=== PATIENT | male | born 2000 | race Caucasian/White ===

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

== ENCOUNTER → 2021-10-06 10:30 | Outpatient (CLI) | payer BC, OTHER, SELFPAY ==
[2021-10-06 11:09] LABS: Adenovirus,PCR Not Detected (NotDetected); Bordetella Pertussis Not Detected (NotDetected); Chlamydophila Pneumoniae, PCR Not Detected (NotDetected); Coronavirus 19, PCR Not Detected (NotDetected); Coronavirus 229E Not Detected (NotDetected); Coronavirus NL63 Not Detected (NotDetected); Coronavirus OC43 Not Detected (NotDetected); Coronovirus HKU1,PCR Not Detected (NotDetected); Human Metapneumovirus Not Detected (NotDetected); Influenza A, PCR Not Detected (NotDetected); Influenza AH1, 2009 Not Detected (NotDetected); Influenza AH1, PCR Not Detected (NotDetected); Influenza AH3,PCR Not Detected (NotDetected); Influenza B, PCR Not Detected (NotDetected); Mycoplasma Pneumoniae, PCR Not Detected (NotDetected); Parainfluenza 1, PCR Not Detected (NotDetected); Parainfluenza 2, PCR Not Detected (NotDetected); Parainfluenza 3, PCR Not Detected (NotDetected); Parainfluenza 4, PCR Not Detected (NotDetected); Respiratory Syncytial Virus Not Detected (NotDetected); Rhinovirus/Enterovirus Not Detected (NotDetected)
== END ==
PROVIDERS: PCP Family Medicine; Visit Provider Nurse Practitioner Family
DX: Z20.822 Contact with and (suspected) exposure to COVID-19 (principal); R05.9 Cough, unspecified
CPT/HCPCS: 87581; 87632; 87798; C9803; U0003; U0005

== ENCOUNTER 2021-10-10 22:45 | Emergency (ER) | payer BC, SELFPAY ==
[2021-10-10 22:46] VITALS: BP 154/94; PULSE 101; RESP 20; TEMP 37.5; O2SAT 96; BMI 30.3
--- NOTE | 2021-10-10 23:04 | XR_ITS ---
PROCEDURE INFORMATION: Exam: XR Chest Exam date and time: 10/10/2021 11:04 PM Age: 21 years old Clinical indication: Shortness of breath; Additional info: SOA TECHNIQUE: Imaging protocol: XR of the chest. Views: 2 views. COMPARISON: No relevant prior studies available. FINDINGS: Lungs: No focal consolidation. Pleural spaces: No pleural effusion. No pneumothorax. Heart/Mediastinum: Unremarkable cardiomediastinal silhouette. Bones/joints: No acute osseous findings. IMPRESSION: No focal consolidation.
[2021-10-10 23:11] LABS: Influenza A, PCR Not Detected (NotDetected); Influenza B, PCR Not Detected (NotDetected)
[2021-10-10 23:18] LABS: Basophils # 0.1 K/mm3 (0-0.2); Basophils % 3.2 % (0.1-2.0); Eosinophils % 0.4 % (0.1-12.0); Hematocrit 47.5 % (42.0-52.0); Lymphocytes # 1.6 K/mm3 (0.7-4.5); Lymphocytes % 46.5 % (10-50); Mean Corpuscular HGB Conc 33.6 g/dL (31.8-35.4); Mean Corpuscular Hemoglobin 28.7 pg (27.0-31.2); Mean Corpuscular Volume 85.3 fl (80-94); Monocytes # 0.3 K/mm3 (0.1-1.0); Monocytes % 9.6 % (1.7-9.3); Neutrophils # 1.4 K/mm3 (1.8-7.8); Neutrophils % 40.3 % (37.0-80.0); Platelet Count 160 K/mm3 (142-424); Red Blood Count 5.57 M/mm3 (4.60-6.20); White Blood Count 3.4 K/mm3 (4.8-10.8)
[2021-10-10 23:22] LABS: Alanine Aminotransferase 22 U/L (12-78); Albumin Level 4.7 g/dl (3.5-5.0); Albumin/Globulin Ratio 1.9 (1.1-1.8); Alkaline Phosphatase 45 U/L (38-126); Amylase 109 U/L (30-110); Anion Gap 12.1 mEq/L (5-15); Aspartate Amino Transferase 33 U/L (17-59); Bilirubin,Total 0.5 mg/dl (0.2-1.3); Blood Urea Nitrogen 18 mg/dl (9-20); Carbon Dioxide 31 mmol/L (22.0-30.0); Chloride 94 mmol/L (98-107); Creatinine Clearance Estimated 130 mL/min (50-200); Estimated Glomerular Filt Rate 68 ml/min (>60); GFR (African American) 83 ML/MIN (>60); Globulin 2.5 g/dL (1.3-3.2); Glucose 101 mg/dl (74-100); Potassium 4.1 mmoL/L (3.5-5.1); Sodium 133 mmol/L (136-145); Total Protein,Serum 7.2 g/dl (6.3-8.2)
[2021-10-10 23:23] LABS: Lipase 191 U/L (23-300)
[2021-10-10 23:28] LABS: C-Reactive Protein 5.4 mg/L (0-4)
[2021-10-10 23:32] LABS: Coronavirus 19, PCR Detected (NotDetected)
[2021-10-10 23:41] LABS: Procalcitonin 0.048 ng/mL (0.0-2.0)
[2021-10-10 23:43] LABS: Erythrocyte Sedimentation Rate 8 mm/hr (0-15)
[2021-10-11 00:12] LABS: Microscopic, Urine URINE MICROSCOPIC (MICROSCOPIC)
[2021-10-11 00:20] LABS: Appearance,Urine CLEAR (Clear); Bilirubin,Urine Negative (Negative); Blood, Urine Negative (Negative); Color,Urine YELLOW (Yellow); Glucose,Urine (UA) Negative (Negative); Ketones,Urine Negative (Negative); Leukocyte Esterase,Urine Negative (Negative); Nitrate,Urine Negative (Negative); Protein,Urine Negative (Negative); Specific Gravity, Urine 1.025 (1.005-1.030)
[2021-10-11 00:26] LABS: Bacteria,Urine Trace /lpf; WBC,Urine Occasional #/hpf (0-3)
--- NOTE | 2021-10-11 00:41 | HMH.EDFEV ---
ED Disposition Clinical Impression: COVID-19 Disposition: Home, Self-Care Condition on Discharge: Good Instructions: DI for COVID-19 (Suspected or Confirmed ) Additional Instructions: fluids and see pcp for follow up Prescriptions: dexAMETHasone [Decadron] 6 mg PO DAILY #6 tab Transmission Status: Pending to [facility] Referrals: Shira Ndiaye APRN [Primary Care Provider] - - Critical Care Critical Care Time: No Attestation: On 10/10/21, the high probability of a clinically significant, sudden or life threatening deterioration of the following system(s) required my full and direct attention, intervention and personal management. The time I documented below is in addition to time spent performing reported procedures but includes the following listed in this critical care notation. Medical Decision Making - Medical Records Medical records reviewed: Yes: I reviewed the patient's medical records. - Noe Inquiry Pt receiving controlled substance: No Vital Signs: 10/10/21 22:46 Temperature 99.5 F Temperature Source Oral Pulse Rate [Apical] 101 H Respiratory Rate 20 Blood Pressure [Right Arm] 154/94 H Blood Pressure Mean [Right Arm] 114 Blood Pressure Source [Right Arm] Automatic Cuff Blood Pressure Position [Right Arm] Sitting 02 Sat by Pulse Oximetry 96 Oxygen Delivery Method Room Air - Lab Data Lab results reviewed: Yes: I reviewed the patient's lab results. Lab Results 10/10/21 22:53: SARS-CoV-2 (PCR) Detected A, Influenza A Untype (PCR) Not detected, Influenza Type B (PCR) Not detected 10/10/21 23:04: WBC 3.4 L, RBC 5.57, Hgb 16.0, Hct 47.5, MCV 85.3, MCH 28.7, MCHC 33.6, RDW 13.0, Plt Count 160, MPV 8.0, Neut % (Auto) 40.3, Lymph % (Auto) 46.5, Campbell % (Auto) 9.6 H, Eos % (Auto) 0.4, Baso % (Auto) 3.2 H, Neut # (Auto) 1.4 L, Lymph # (Auto) 1.6, Campbell # (Auto) 0.3, Eos # (Auto) 0.0, Baso # (Auto) 0.1, ESR 8 10/10/21 23:04: Sodium 133 L, Potassium 4.1, Chloride 94 L, Carbon Dioxide 31 H, Anion Gap 12.1, BUN 18, Creatinine 1.30 H, Estimated Creat Clear 130, Estimated GFR 68, Est GFR ( Amer) 83, Glucose 101 H, Calcium 9.0, Total Bilirubin 0.5, AST 33, ALT 22, Alkaline Phosphatase 45, C-Reactive Protein 5.4 H, Total Protein 7.2, Albumin 4.7, Globulin 2.5, Albumin/Globulin Ratio 1.9 H, Amylase 109, Procalcitonin 0.048 10/10/21 23:04: Lipase 191 10/11/21 00:05: Urine Color Yellow, Urine Appearance Clear, Urine pH 6.0, Ur Specific [place] 1.025, Urine Protein Negative, Urine Glucose (UA) Negative, Urine Ketones Negative, Urine Blood Negative, Urine Nitrate Negative, Urine Bilirubin Negative, Urine Urobilinogen 2.0, Ur Leukocyte Esterase Negative, Urine RBC None, Urine WBC Occasional, Ur Squamous Epith Cells 3-5, Urine Bacteria Trace Result diagrams: 10/10/21 23:04 10/10/21 23:04 Orders (Tests/Meds): ED MEDICATIONS Generic Name Dose Route Start Last Admin Trade Name Freq PRN Reason Stop Dose Admin Sodium Chloride 1,000 mls @ 999 mls/hr 10/10/21 23:15 10/10/21 23:07 Sod Chlor 0.9% 1000ml Bag IV 10/11/21 00:15 999 mls/hr .Q1H1M STEFFEN Administration Sodium Chloride 8 ml 10/10/21 23:08 Sodium Chloride 0.9% 10ml Vial IV 11/09/21 23:07 NEEDED PRN dilute pepcid Discontinued Medications Generic Name Dose Route Start Last Admin Trade Name Freq PRN Reason Stop Dose Admin Dexamethasone Sodium Phosphate 10 mg 10/10/21 23:03 10/10/21 23:11 Dexamethasone 4mg/Ml 5ml Mdv IV 10/10/21 23:04 10 mg ONCE ONE Administration Famotidine 20 mg 10/10/21 23:08 10/10/21 23:10 Famotidine 20mg/2ml Vial IV 10/10/21 23:09 20 mg ONCE ONE Administration Ketorolac Tromethamine 30 mg 10/10/21 23:02 10/10/21 23:10 Ketorolac 30mg/Ml Vial IV 10/10/21 23:03 30 mg ONCE ONE Administration Metoclopramide HCl 10 mg 10/10/21 23:08 10/10/21 23:10 Metoclopramide Hcl 10mg/2ml Vial IVP 10/10/21 23:09 10 mg ONCE ONE Administration Ondansetron HCl 4 m
[2021-10-11 01:04] VITALS: BP 150/90; PULSE 89; RESP 20; TEMP 36.8; O2SAT 99
== END 2021-10-11 01:07 | disposition home or self-care (01) ==
PROVIDERS: Emergency Provider Emergency Medicine; PCP Nurse Practitioner Family
DX: U07.1 COVID-19 (principal)
CPT/HCPCS: 71046; 80053; 81001; 82150; 83690; 84145; 85025; 85651; 86140; 96365; 96375; 99283; C9803; J2405; U0003; U0005

== ENCOUNTER 2022-04-09 14:20 | Emergency (ER) | payer BC, SELFPAY ==
[2022-04-09 14:22] VITALS: BP 146/95; PULSE 101; RESP 18; TEMP 36.9; O2SAT 98; BMI 29.1
--- NOTE | 2022-04-09 14:55 | PC.NURSE ---
FOOT SOAKING IN WARM WATER AND HEBICLENSE
--- NOTE | 2022-04-09 15:11 | HMH.EDGENADL ---
ED Disposition Clinical Impression: Penetrating foot wound Qualifiers: Encounter type: initial encounter Laterality: right Qualified Code(s): S91.331A - Puncture wound without foreign body, right foot, initial encounter Puncture wound of foot without foreign body Qualifiers: Encounter type: initial encounter Laterality: right Qualified Code(s): S91.331A - Puncture wound without foreign body, right foot, initial encounter Disposition: Home, Self-Care Condition on Discharge: Good Instructions: DI for Puncture Wound Additional Instructions: You have been evaluated for puncture wound to the right foot. Please take antibiotics as prescribed. Follow-up with your primary care doctor for wound check in 1 to 2 days. Return to the emergency department at once for any new or worsening symptoms, wound drainage, fever, increased pain, any other concerns. Prescriptions: cephALEXin [cephALEXin 500mg capsule*] 500 mg PO Q6H #20 cap Transmission Status: Pending to [facility] cephALEXin [cephALEXin 500mg capsule*] 500 mg PO Q6H #20 cap Transmission Status: Pending to [facility] Referrals: Catherine Gregory APRN [Primary Care Provider] - Time of Disposition: 15:19 - Critical Care Critical Care Time: No Attestation: On 04/09/22, the high probability of a clinically significant, sudden or life threatening deterioration of the following system(s) required my full and direct attention, intervention and personal management. The time I documented below is in addition to time spent performing reported procedures but includes the following listed in this critical care notation. Medical Decision Making - Medical Records Medical records reviewed: Yes: I reviewed the patient's medical records. - Noe Inquiry Pt receiving controlled substance: No Vital Signs: 04/09/22 14:22 Temperature 98.4 F Temperature Source Oral Pulse Rate [Right Radial] 101 H Respiratory Rate 18 Blood Pressure [Right Arm] 146/95 H Blood Pressure Mean [Right Arm] 112 Blood Pressure Source [Right Arm] Automatic Cuff Blood Pressure Position [Right Arm] Sitting 02 Sat by Pulse Oximetry 98 Oxygen Delivery Method Room Air Medical Decision Narrative: In summary this is a previously healthy 22-year-old male presenting to the emergency department with a puncture wound to the plantar aspect of his right foot. Incident happened greater than 12 hours ago. Does appear to be fairly clean. Foot placed into Hibiclens warm water bath. Copiously irrigated. Does not appear to be any retained foreign body. Material was organic, do not believe that x-ray would be beneficial. Reassessment, pain has improved after soaking in the water bath. Will prescribe antibiotics. Recommended PCP follow-up. Given return precautions. Stable for discharge. General Adult HPI - General Chief complaint: Wound/Laceration Stated complaint: [id number] r foot injury while fishing Time Seen by Provider: 04/09/22 14:41 Mode of Arrival: Ambulatory Source of Information: Patient Limitations: No Limitations Description of Symptoms (Recalled from ER Triage Doc. by RN): Pt presents to ED with puncture wound to bottom of rt foot, below great toe. States that he stepped on a specific type of weed last night that went through his shoe - History of Present Illness HPI narrative: 22-year-old male presenting to the emergency department the puncture wound to the plantar aspect of his right foot. Incident happened yesterday evening. He was walking in the grass, wearing shoes. He stepped on a sharp plant that punctured the bottom of the shoe and created a wound near the base of his toe. Pain was initially sharp. He was able to remove the thorn without difficulty. Since then he has had some pain, especially with walking. Minimal pain at rest. He cleaned the wound with soap and water. There is a small amount of surrounding redness. No wound drainage. No other injuries. He is up-
--- NOTE | 2022-04-09 15:38 | PC.NURSE ---
BACTIRACIAN AND TEGADERM APPLIED TO FOOT
[2022-04-09 16:00] VITALS: BP 134/89; PULSE 99; RESP 18; TEMP 36.9; O2SAT 99
== END 2022-04-09 16:01 | disposition home or self-care (01) ==
PROVIDERS: Emergency Provider Emergency Medicine; PCP Nurse Practitioner Family
DX: S91.339A Puncture wound without foreign body, unspecified foot, initial encounter (principal); W45.8XXA Other foreign body or object entering through skin, initial encounter; Y93.59 Activity, other involving other sports and athletics played individually
CPT/HCPCS: 99282

== ENCOUNTER 2022-04-14 16:36 | Emergency (ER) | payer BC, SELFPAY ==
[2022-04-14 17:17] VITALS: BP 124/81; PULSE 90; RESP 19; TEMP 37.2; O2SAT 99; BMI 29.1
--- NOTE | 2022-04-14 17:29 | HMH.EDUTC ---
[facility] Disposition Clinical Impression: Wound infection Disposition: Home, Self-Care Condition on Discharge: Good Instructions: Clindamycin, DI for Puncture Wound Additional Instructions: Make sure to keep area clean and dry Clean well with an Seek care immediately if: You have severe pain. You have numbness or tingling in the area of your wound. Your wound starts bleeding and does not stop, even after you apply pressure. Call your doctor if: You have new drainage or a bad odor coming from the wound. You have a fever or chills. You have increased swelling, redness, or pain. You have red streaks on your skin coming from your wound. You have questions or concerns about your condition or care. Rest and elevate the injured area above the level of your heart as often as you can. This will help decrease swelling and pain. Prop your injured area on pillows or blankets to keep it elevated comfortably. Keep your wound clean and dry. carefully wash the wound with soap and water. Dry the area and put on new, clean bandages as directed. Change your bandages when they get wet or dirty. Start Clindamycin immediately Call first thing in the morning for appointment as soon as possible with Podiatry Straight to ER if any fever chills or body aches Prescriptions: clindamycin HCL [Cleocin HCl] 300 mg PO QID 10 Days #40 cap Transmission Status: Pending to [id number] Referrals: Catherine Gregory APRN [Primary Care Provider] - As needed Selina Canchola DPM [Staff Physician] - Vidya Jacob APRN [Nurse Practitioner] - Tarun Call DPM [Physician] - Time of Disposition: 18:09 Medical Decision Making - Noe Inquiry Pt receiving controlled substance: No Noe was queried for this patient: No Vital Signs: 04/14/22 17:17 Temperature 98.9 F Temperature Source Oral Pulse Rate [Radial] 90 Respiratory Rate 19 Blood Pressure [Right Arm] 124/81 Blood Pressure Mean [Right Arm] 95 Blood Pressure Source [Right Arm] Automatic Cuff Blood Pressure Position [Right Arm] Sitting 02 Sat by Pulse Oximetry 99 Oxygen Delivery Method Room Air Orders (Tests/Meds): ORDERS Category Date Time Status Foot XR right minimum 3 views [XR foot RT min 3V] Stat Exams 04/14/22 17:38 Ordered - Radiology Data #1 Image(s): Foot/Toes Image Reviewed: Yes I reviewed the patient's radiology image No FB noted [facility] HPI - General Stated complaint: AO 04/09@1200 injured r Foot Time Seen by Provider: 04/14/22 17:29 Mode of Arrival: Wheelchair Source of Information: Patient Description of Symptoms (Recalled from Triage Doc. by RN): PUNCTURE WOUND TO RIGHT FOOT, SWOLLEN INCREASED REDNESS. ON ABX HEENT Symptoms (Recalled from RN notes): No Resp Symptoms (Recalled from RN notes): No Skin Symptoms (Recalled from RN notes): Yes MS Symptoms (Recalled from RN notes): No Functional Status (Recalled from RN notes): N/A - History of Present Illness Provider Complaint: Patient state that he stepped on hog week last weekend and was seen in ED patient states that foot is more tender and redness and swelling has got worse State that very sore to the touch and has had minimal drainage Denies fever or chills - Related Data Home Medications Medication Instructions Recorded Confirmed lisinopriL [Lisinopril] 10 mg PO DAILY 10/10/21 10/11/21 ondansetron HCL [Ondansetron 4mg 4 mg PO TIDP PRN 10/10/21 10/11/21 tab*] Previous Rx's Medication Instructions Recorded dexAMETHasone [Decadron] 6 mg PO DAILY #6 tab 10/11/21 cephALEXin [cephALEXin 500mg 500 mg PO Q6H #20 cap 04/09/22 capsule*] cephALEXin [cephALEXin 500mg 500 mg PO Q6H #20 cap 04/09/22 capsule*] clindamycin HCL [Cleocin HCl] 300 mg PO QID 10 Days #40 cap 04/14/22 Allergies Allergy/AdvReac Type Severity Reaction Status Date / Time No Known Allergies Allergy Verified 03/31/18 19:02 - Worker's Comp Is this a Worker's Comp case?: No [facility] History - Hepatitis
--- NOTE | 2022-04-14 17:38 | XR_ITS ---
PROCEDURE INFORMATION: Exam: XR Right Foot Exam date and time: 04/14/2022 5:46 PM Age: 22 years old Clinical indication: Pain; Foot; Right; Additional info: Puncture TECHNIQUE: Imaging protocol: Radiologic exam of the Right foot. Views: 3 or more views. COMPARISON: CR FTR3 FOOT-RT-3 VIEWS 06/30/2017 3:50 PM FINDINGS: Bones/joints: Chronic bony structure adjacent to the medial aspect of the great toe interphalangeal joint. This is unchanged. Soft tissues: No radiopaque foreign bodies. IMPRESSION: No radiopaque foreign bodies.
[2022-04-14 18:12] VITALS: BP 124/81; PULSE 90; RESP 18; TEMP 37.2; O2SAT 100
== END 2022-04-14 18:13 | disposition home or self-care (01) ==
PROVIDERS: Emergency Provider Nurse Practitioner; PCP Nurse Practitioner Family
DX: S91.331D Puncture wound without foreign body, right foot, subsequent encounter (principal); L08.9 Local infection of the skin and subcutaneous tissue, unspecified; W55 Contact with other mammals
CPT/HCPCS: 73630; 99212; G0463

== ENCOUNTER → 2022-04-25 06:03 | Outpatient (CLI) | payer BC, SELFPAY | PROVIDERS: Visit Provider Podiatrist | DX: Z01.818 Encounter for other preprocedural examination (principal) ==

== ENCOUNTER → 2022-04-25 16:06 | Outpatient (CLI) | payer BC, SELFPAY ==
[2022-04-25 16:48] LABS: Basophils # 0.2 K/mm3 (0-0.2); Basophils % 2.6 % (0.1-2.0); Eosinophils # 0.1 K/mm3 (0.0-0.4); Hematocrit 47.9 % (42.0-52.0); Hemoglobin 15.8 g/dL (14.1-18.0); Lymphocytes # 1.6 K/mm3 (0.7-4.5); Lymphocytes % 21.6 % (10-50); Mean Corpuscular HGB Conc 32.9 g/dL (31.8-35.4); Mean Corpuscular Hemoglobin 27.8 pg (27.0-31.2); Mean Corpuscular Volume 84.7 fl (80-94); Mean Platelet Volume 7.8 fl (7.4-10.4); Monocytes # 0.6 K/mm3 (0.1-1.0); Monocytes % 7.6 % (1.7-9.3); Neutrophils # 4.9 K/mm3 (1.8-7.8); Neutrophils % 67.1 % (37.0-80.0); Platelet Count 301 K/mm3 (142-424); Red Blood Count 5.66 M/mm3 (4.60-6.20); White Blood Count 7.3 K/mm3 (4.8-10.8)
[2022-04-25 17:25] LABS: Erythrocyte Sedimentation Rate 3 mm/hr (0-15)
[2022-04-25 17:33] LABS: Alanine Aminotransferase 33 U/L (12-78); Albumin Level 4.6 g/dl (3.5-5.0); Albumin/Globulin Ratio 1.8 (1.1-1.8); Alkaline Phosphatase 58 U/L (38-126); Anion Gap 15.4 mEq/L (5-15); Aspartate Amino Transferase 25 U/L (17-59); Bilirubin,Total 0.2 mg/dl (0.2-1.3); Blood Urea Nitrogen 22 mg/dl (9-20); Calcium 9.9 mg/dl (8.4-10.2); Carbon Dioxide 26 mmol/L (22.0-30.0); Chloride 102 mmol/L (98-107); Estimated Glomerular Filt Rate 74 ml/min (>60); GFR (African American) 90 ML/MIN (>60); Globulin 2.6 g/dL (1.3-3.2); Glucose 99 mg/dl (74-100); Potassium 4.4 mmoL/L (3.5-5.1); Sodium 139 mmol/L (136-145); Total Protein,Serum 7.2 g/dl (6.3-8.2)
[2022-04-25 17:39] LABS: C-Reactive Protein 2.2 mg/L (0-4)
== END ==
PROVIDERS: PCP Nurse Practitioner Family; Visit Provider Podiatrist
DX: Z01.812 Encounter for preprocedural laboratory examination (principal); Z20.822 Contact with and (suspected) exposure to COVID-19; M79.671 Pain in right foot
CPT/HCPCS: 36415; 80053; 85025; 85651; 86140; 87070; 87077; 87186; 87205; C9803; U0003; U0005

== ENCOUNTER → 2022-04-26 10:53 | Outpatient (CLI) | payer BC, SELFPAY ==
--- NOTE | 2022-04-26 10:53 | CT_ITS ---
FINAL REPORT CLINICAL HISTORY: abscess, puncture wound FINDINGS: CT LOWER EXTREMITY W & W/O CONTRAST Axial CT images were performed through the right foot with and without contrast. Coronal and sagittal reformatted images were submitted. This study was performed with techniques to keep radiation doses as low as reasonably achievable (ALARA). Individualized dose reduction techniques using automated exposure control or adjustment of mA and/or kV according to the patient's size were employed. FINDINGS: There is no acute fracture. There is no dislocation. There is a chronic calcification adjacent to the 1st IP joint that may represent sequela of prior injury. There is no acute bony erosion. There is soft tissue edema or inflammation along the plantar medial aspect of the great toe, plantar forefoot beneath the 1st MTP joint, and lateral plantar forefoot under the 5th MTP joint. There is no focal fluid collection to suggest abscess. There is no abnormal contrast enhancement. IMPRESSION: Multifocal soft tissue edema or inflammation without findings to suggest abscess. Reviewed, Interpreted and Dictated by Jose Manuel De Oliveira III, MD Transcribed by Otis Rubio Authenticated and . [facility]
== END ==
PROVIDERS: PCP Nurse Practitioner Family; Visit Provider Podiatrist
DX: L02.611 Cutaneous abscess of right foot (principal); L03.115 Cellulitis of right lower limb; M79.671 Pain in right foot; S91.331A Puncture wound without foreign body, right foot, initial encounter
CPT/HCPCS: 73702; Q9967

== ENCOUNTER 2022-04-27 12:56 | Day surgery (SDC) | payer BC, SELFPAY ==
[2022-04-26 12:05] VITALS: BMI 33.9
[2022-04-27] VITALS (7 sets, daily range): BP systolic 128–156; BP diastolic 70–86; PULSE 86–106; RESP 16–18; TEMP 36.3–36.8; O2SAT 100
--- NOTE | 2022-04-27 15:44 | P.PN_ITS ---
[facility] Anesthesia Checklist - Patient Identification Patient Identification: Arm Band - Structural Data Admitted From: Home Planned Operative Procedure/s: I&D right foot Consent for Planned Operative Procedure(s) Verified: Yes Verified Documents: Surgical Consent, History and Physical - NPO Status Verified Time NPO: 00:00 - Additional verifications Anesthesia Reactions: No Hx Blood Transfusions: No Blood Transfusion Reaction: No - Airway Assessment C-Spine Mobility Assessed: Yes (mp2) TMJ Mobility Assessed: Yes Dentition: Good Dentition - Neurological Assessment Level of Consciousness: Awake, Alert - Anesthesia Plan Anesthesia Risk discussed: Yes Anesthesia Plan: Verified ASA Class: II Anesthesia Type: MAC [facility] History I have reviewed the patient's past medical history: Yes Medical History: Reports:: Hypertension Denies:: Cancer, Diabetes Mellitus Type 1, Diabetes Mellitus Type 2, Internal Pacemaker, MRSA, Seizures *Have you ever received a pneumonia vaccine?: No *Have you received a flu vaccine this season?: No Other Medical History: Denies: Blood Transfusion Reaction Anesthesia experience/problems:: nac Laterality Cases: Bilateral: Tonsillectomy Other Surgeries: No: Pacemaker Amputation: No - *Social History Last grade of school completed: Some college Smoking Status: Never smoker Alcohol Intake: never Substance Use Type: denies use *Occupational Status:: unemployed Housing: house Household Members: family *Travel in the last 8 weeks: None Family Hx:: No significant family history
--- NOTE | 2022-04-27 16:04 | HMH.OPNOTE ---
Date of procedure: 04/27/22 Pre-op Diagnosis:: Puncture wound of right foot Cellulitis of right foot Right foot infection Right foot pain Obesity (BMI 30.0-34.9) Post-op Diagnosis:: Same + foreign body Procedure performed:: 1. Right foot deep incision and drainage 2. Right foot irrigation and debridement 3. Right foot deep wound cultures 4. Right foot foreign body removal Surgeon:: Selina Canchola DPM PHONE REPRESENTATIVE:: Taiwo Breaux Anesthesia: MAC, local (30cc 0.5% marcaine plain) Estimated blood loss (mL): 20 Clinical Note:: Patient 22-year-old male who had a puncture wound 04/09/2022. Patient went to the ER has been on Keflex, clindamycin and most recently Bactrim with Levo. We discussed conservative versus surgical treatment options. We discussed conservative care including continued oral vs IV antibiotics and local wound care versus surgical incision and drainage. Patient understands that they could have wound healing complications including delayed healing and infection. We discussed that if the wound does not heal, it is possible that they may need further debridement. Patient understands if infection spreads into the bone, it may warrant proximal amputation and could result in further loss of digits, loss of partial foot or loss of leg. We discussed the risks and benefits in great detail. Other surgical risks include: prolonged pain and swelling, further infection requiring oral or IV antibiotics, delay in healing of soft tissue or bone, nerve or blood vessel damage, CRPS/RSD, DVT, anesthesia complications, and even . All questions answered. Patient verbalized understanding. Consent obtained. Operative findings:: Preoperatively image was reviewed and no evidence of foreign body on x-ray or CT scan. A 5 x 3 cm blood blister noted to the plantar aspect of the first metatarsal. Puncture wound noted at the superior aspect of the incision 0.3 x 0.1 cm. Incision made over the blister and puncture wound. Immediately less than 5 cc of thick creamy purulent drainage was expressed superiorly. Blunt dissection deeply. Hard foreign object encountered. Foreign body appeared to be a piece of wood measuring 1.2 cm long. No deep purulence noted. No evidence of deep sinus tracking. Operative note:: On this date and time patient was deemed an appropriate surgical candidate. With informed consent signed, the patient was taken to the operating theater. The patient was positioned supine. MAC anesthesia was induced. No tourniquet was applied. Pre-op left foot/ankle block given with 20cc 0.5% marcaine plain. IV Vanco 1g given. Right foot incision and drainage, irrigation and debridement: Right lower extremity prepped and draped in normal sterile fashion. Attention was directed to the plantar foot where a visible and palpable soft tissue fluctuant mass was noted over the first metatarsal. A linear incision was mapped out over the blood blister including the puncture wound. 15 blade and forceps used to excise/debride puncture wound full-thickness skin subcu into the deep fascia. Dissection was carried through the fluctuant skin/blood blister through subcutaneous tissue with care taken to maintain surgical hemostasis and safely retract neurovascular structures. There was purulence noted underneath the skin. Deep wound cultures x2 taken. Right foreign body removal: Wound was explored and there was a palpable foreign body overlying the deep fascia. Using a mixture of sharp and blunt and dissection technique the wood was isolated. It was removed en total and sent to lab the specimen. The wound was flushed with copious amounts of normal sterile saline mixed with gentamicin irrigation. Bleeding controlled. Wound was reexplored and no more evidence of foreign body noted. There were no signs of deep infection. The wounds once again flushed with copious. 3-0 plain was used to reapproximate the skin in an interrupted fashion. The wounds were cleansed. 10 cc 0.5% marcaine plain was
== END 2022-04-27 17:27 | disposition home or self-care (01) ==
PROVIDERS: PCP Nurse Practitioner Family; Visit Provider Podiatrist
PROC: (CPT 28190; principal; 2022-04-27 14:30)
DX: S91.341A Puncture wound with foreign body, right foot, initial encounter (principal); L03.115 Cellulitis of right lower limb; B96.1 Klebsiella pneumoniae [K. pneumoniae] as the cause of diseases classified elsewhere; W22.8XXA Striking against or struck by other objects, initial encounter; L02.611 Cutaneous abscess of right foot
CPT/HCPCS: 28190; 28003; 87070; 87075; 87077; 87186; 87205; 96374

== ENCOUNTER → 2022-05-24 06:46 | Outpatient (CLI) | payer BC, SELFPAY | PROVIDERS: PCP Nurse Practitioner Family; Visit Provider Emergency Medicine | DX: U07.1 COVID-19 (principal) | CPT/HCPCS: C9803; U0003; U0005 ==

== ENCOUNTER 2022-09-17 08:35 | Emergency (ER) | payer BC, SELFPAY ==
--- NOTE | 2022-09-17 08:58 | EXP.UTC ---
Discharge Plan Disposition Patient Disposition: Still a Patient Condition: Fair Prescriptions Prescriptions: No Action ibuprofen 800 mg tablet 800 mg PO BID Qty: 60 3RF lisinopril 10 mg tablet 20 mg PO DAILY Referrals Follow up/Referrals: Catherine Gregory APRN [Primary Care Provider] - See instructions Clinical Impressions Clinical Impression: Abdominal pain Discharge ED Provider: Mauro Kaplan [facility] [place] HPI General Stated complaint: Stomach pain Time Seen by Provider: 09/17/22 08:58 History of Present Illness Provider Complaint: He states that for the past 2 days he has had constant right sided abdominal pain. He has also had what he describes as bright red rectal bleeding also. He denies n/v/d. Related Data Home Medications Medication Instructions Recorded Confirmed lisinopril 10 mg tablet 20 mg PO DAILY htn 04/25/22 05/17/22 Previous Rx's Medication Instructions Recorded ibuprofen 800 mg tablet 800 mg PO BID pain, mild #60 tabs 04/25/22 Allergies Allergy/AdvReac Type Severity Reaction Status Date / Time No Known Allergies Allergy Verified 09/17/22 09:10 [facility] Disclaimer: The information contained in this section may have been updated after the patient was seen, as this information can be updated by other users. Medical History HTN (hypertension), benign Surgical History Hx of tonsillectomy Social History Smoking Status: Never smoker alcohol intake: never substance use type: denies use current occupational status: unemployed Travel in the last 8 weeks: None household members: family housing: house current occupational exposures/hazards: No caffeine: Yes ROS Obtained: Yes All systems reviewed & no additional complaints except as documented Constitutional Constitutional: Denies chills, Denies fever(s) and Reports poor appetite ENT Ears, Nose, Mouth, and Throat: Denies dizziness and Denies sore throat Cardiovascular Cardiovascular: Denies dyspnea Respiratory Respiratory: Denies chest congestion, Denies cough and Denies dyspnea Genitourinary Male Genitourinary: Denies hematuria, Denies urinary frequency, Denies urinary hesitancy, Denies urinary incontinence and Denies urinary urgency Musculoskeletal Musculoskeletal: Denies arthralgias Integumentary/Breasts Skin/Breast: Denies rash Neurologic Neurologic: Denies dizziness Physical Exam General General appearance: alert and in no apparent distress Head Head exam: atraumatic and normocephalic Eye Eye exam: Present normal appearance, PERRL and EOMI ENT ENT exam: Present normal exam, normal oropharynx, mucous membranes moist, TM's normal bilaterally and normal external ear exam Neck Neck exam: Present normal inspection, full ROM and trachea midline; Absent tenderness, meningismus or lymphadenopathy Chest Chest inspection: Present normal inspection and symmetric chest wall rise; Absent tenderness, rash or abscess Respiratory Respiratory exam: Present normal lung sounds bilaterally; Absent respiratory distress, wheezes or stridor Cardiovascular Cardiovascular exam: Present regular rate and normal rhythm; Absent irregular rhythm, systolic murmur, diastolic murmur or JVD Abdominal Exam Abdominal exam: Present soft and normal bowel sounds; Absent distention, tenderness, guarding, rebound or rigidity Rectal Exam Rectal exam: Present normal inspection, normal rectal tone, hemorrhoids and normal prostate; Absent black stool, bloody stool, fecal impaction, mass, tenderness, prostate tenderness or prostate enlargement comment: Stool did not appear bloody or dark and tarry. Extremities Exam Extremities exam: Present normal inspection and full ROM; Absent tenderness Back Exam Back exam: Present normal inspection and full ROM; Absent tenderness, CVA tenderness (R) or
[2022-09-17 09:07] VITALS: BP 125/72; PULSE 66; RESP 16; TEMP 36.9; O2SAT 100; BMI 29.8
[2022-09-17 09:52] VITALS: BP 142/68; PULSE 63; RESP 16; TEMP 36.7; O2SAT 99; BMI 29.0
[2022-09-17 09:58] LABS: Occult Blood,Stool Negative (Negative)
[2022-09-17 10:00] VITALS: BP 131/73; PULSE 64; RESP 17; O2SAT 97
[2022-09-17 10:03] LABS: Microscopic, Urine URINE MICROSCOPIC (MICROSCOPIC)
[2022-09-17 10:07] LABS: Appearance,Urine CLEAR (Clear); Bilirubin,Urine Negative (Negative); Blood, Urine Negative (Negative); Color,Urine YELLOW (Yellow); Glucose,Urine (UA) Negative (Negative); Ketones,Urine Negative (Negative); Leukocyte Esterase,Urine Negative (Negative); Nitrate,Urine Negative (Negative); PH,Urine 8.5 (5.0-8.5); Protein,Urine Negative (Negative); Specific Gravity, Urine 1.015 (1.005-1.030); Urobilinogen,Urine 0.2 EU/dl (0.2)
--- NOTE | 2022-09-17 10:08 | HMH.EDGENADL ---
Discharge Plan Disposition Patient Disposition: Home, Self-Care Condition: Good Prescriptions Prescriptions: New sucralfate [Carafate] 1 gram tablet 1 g PO BID 28 Days Qty: 56 0RF No Action ibuprofen 800 mg tablet 800 mg PO BID Qty: 60 3RF lisinopril 10 mg tablet 20 mg PO DAILY Referrals Follow up/Referrals: Catherine Gregory APRN [Primary Care Provider] - See instructions Clinical Impressions Clinical Impression: Abdominal pain Instructions Patient Instructions: DI for Acute Abdominal Pain Discharge ED Provider: Yoni Masters General Adult HPI General Chief complaint: Abdominal Pain Stated complaint: Stomach pain Time Seen by Provider: 09/17/22 08:58 Mode of Arrival: Ambulatory Source of Information: Patient Limitations: No Limitations Description of Symptoms (Recalled from ER Triage Doc. by RN): pt comes in with c/o stomach pain and rectal bleeding ongoing for three days. pain is in rmq. History of Present Illness HPI narrative: 22-year-old male no significant past medical history, denies any prior abdominal surgeries. He presents with right upper quadrant abdominal pain for 2 days, states intermittent, not worse with eating, denies any fevers, chills, he did state he had 1 stool with blood-tinged mucus however fecal occult blood test here is negative. Denies pain in the right lower quadrant. No treatments prior to this visit. Denies any clear palliative or exacerbating factors pain is described as relatively mild. Related Data Home Medications Medication Instructions Recorded Confirmed lisinopril 10 mg tablet 20 mg PO DAILY htn 04/25/22 05/17/22 Previous Rx's Medication Instructions Recorded ibuprofen 800 mg tablet 800 mg PO BID pain, mild #60 tabs 04/25/22 sucralfate 1 gram tablet (Carafate) 1 g PO BID 4 weeks #56 tabs 09/17/22 Allergies Allergy/AdvReac Type Severity Reaction Status Date / Time No Known Allergies Allergy Verified 09/17/22 09:10 [facility] Disclaimer: The information contained in this section may have been updated after the patient was seen, as this information can be updated by other users. Medical History HTN (hypertension), benign Surgical History Hx of tonsillectomy Social History Smoking Status: Never smoker alcohol intake: never substance use type: denies use current occupational status: unemployed Travel in the last 8 weeks: None household members: family housing: house current occupational exposures/hazards: No caffeine: Yes ROS Obtained: Yes Systems reviewed as appropriate & no additional complaints except as documented Constitutional Constitutional: Reports system reviewed and no additional complaints, except as documented Eyes Eyes: Reports system reviewed and no additional complaints, except as documented ENT Ears, Nose, Mouth, and Throat: Reports system reviewed and no additional complaints, except as documented Cardiovascular Cardiovascular: Reports system reviewed and no additional complaints, except as documented Respiratory Respiratory: Reports system reviewed and no additional complaints, except as documented Gastrointestinal Gastrointestingal: Reports system reviewed and no additional complaints, except as documented Genitourinary Male Genitourinary: Reports system reviewed and no additional complaints, except as documented Musculoskeletal Musculoskeletal: Reports system reviewed and no additional complaints, except as documented Integumentary/Breasts Skin/Breast: Reports system reviewed and no additional complaints, except as documented Neurologic Neurologic: Reports system reviewed and no additional complaints, except as documented Endocrine Endocrine: Reports system reviewed and no additional complaints, except as documented Hematologic/Lymphatic
[2022-09-17 10:28] LABS: WBC,Urine Occasional #/hpf (0-3)
[2022-09-17 10:46] LABS: Basophils # 0.1 K/mm3 (0-0.2); Basophils % 1.5 % (0.1-2.0); Chloride 102 mmol/L (98-107); Eosinophils # 0.1 K/mm3 (0.0-0.4); Eosinophils % 1.5 % (0.1-12.0); Hematocrit 45.8 % (42.0-52.0); Hemoglobin 15.5 g/dL (14.1-18.0); Lymphocytes # 1.4 K/mm3 (0.7-4.5); Mean Corpuscular HGB Conc 33.8 g/dL (31.8-35.4); Mean Corpuscular Hemoglobin 27.1 pg (27.0-31.2); Mean Corpuscular Volume 80.2 fl (80-94); Mean Platelet Volume 8.1 fl (7.4-10.4); Monocytes # 0.3 K/mm3 (0.1-1.0); Monocytes % 7.6 % (1.7-9.3); Neutrophils # 2.4 K/mm3 (1.8-7.8); Neutrophils % 57.5 % (37.0-80.0); Platelet Count 299 K/mm3 (142-424); Red Blood Count 5.72 M/mm3 (4.60-6.20); Red Cell Distribution Width 13.7 % (11.5-17.5); White Blood Count 4.2 K/mm3 (4.8-10.8)
[2022-09-17 10:47] LABS: Potassium 4.1 mmoL/L (3.5-5.1); Sodium 140 mmol/L (136-145)
[2022-09-17 10:49] LABS: Alanine Aminotransferase 36 U/L (12-78); Albumin Level 4.5 g/dl (3.5-5.0); Albumin/Globulin Ratio 1.6 (1.1-1.8); Alkaline Phosphatase 50 U/L (38-126); Anion Gap 14.1 mEq/L (5-15); Aspartate Amino Transferase 28 U/L (17-59); Bilirubin,Total 0.6 mg/dl (0.2-1.3); Blood Urea Nitrogen 14 mg/dl (9-20); Carbon Dioxide 28 mmol/L (22.0-30.0); Creatinine Clearance Estimated 134 mL/min (50-200); Estimated Glomerular Filt Rate 74 ml/min (>60); GFR (African American) 90 ML/MIN (>60); Globulin 2.8 g/dL (1.3-3.2); Glucose 100 mg/dl (74-100); Lipase 122 U/L (23-300); Total Protein,Serum 7.3 g/dl (6.3-8.2)
[2022-09-17 10:50] LABS: Calcium 9.3 mg/dl (8.4-10.2)
[2022-09-17 11:00] VITALS: BP 139/79; PULSE 62; RESP 16; O2SAT 98
[2022-09-17 12:14] VITALS: BP 134/82; PULSE 73; RESP 20; TEMP 36.9; O2SAT 99
== END 2022-09-17 12:15 | disposition home or self-care (01) ==
LOC: UTC 09:47 → ER 09:52
PROVIDERS: Nurse Practitioner Family; Emergency Provider Emergency Medicine; PCP Nurse Practitioner Family
DX: K92.1 Melena; R10.11 Right upper quadrant pain; Z79.1 Long term (current) use of non-steroidal anti-inflammatories (NSAID); Z79.899 Other long term (current) drug therapy
CPT/HCPCS: 99284; 80053; 81001; 82272; 83690; 85025; G0328

== ENCOUNTER 2024-09-09 14:45 | Emergency (ER) | payer BC, SELFPAY ==
[2024-09-09 15:49] VITALS: BP 121/77; PULSE 95; RESP 18; TEMP 37.5; O2SAT 96; BMI 29.8
[2024-09-09 16:02] LABS: UTC Strep Screen (Rapid) Negative (Negative)
[2024-09-09 16:03] LABS: UTC Influenza A Antigen Negative (Negative); UTC Influenza B Antigen Negative (Negative)
--- NOTE | 2024-09-09 16:07 | EXP.UTC ---
Discharge Plan Disposition Patient Disposition: Home, Self-Care Condition: Good Prescriptions Prescriptions: New amoxicillin 500 mg tablet 500 mg PO TID 10 Days Qty: 30 0RF [id number] [Bromfed DM] 2-30-10 mg/5 mL Syrup 5 ml PO Q6H PRN (Reason: Cough) Qty: 240 0RF ondansetron 4 mg Tablet,Disintegrating 4 mg PO Q8H PRN (Reason: Nausea) Qty: 12 0RF oseltamivir [Tamiflu] 75 mg capsule 75 mg PO BID 5 Days Qty: 10 0RF Referrals Follow up/Referrals: Catherine Gregory APRN [Primary Care Provider] - See instructions Activity Restrictions/Add. Instructions Additional Instructions/Restrictions: Drink plenty of fluids. Take tylenol or ibuprofen for pain or fever. Take the medications as directed. Follow up with your regular doctor. GO TO THE ER FOR ANY WORSENING SYMPTOMS Clinical Impressions Clinical Impression: Bronchitis, Influenza A Stand Alone Forms Stand Alone Forms: Work/School Release Instructions Patient Instructions: DI for Viral Syndrome Print Language Print Language: Italian Discharge ED Provider: Mauro Kaplan [facility] General Stated complaint: body chills, H/A and fatigue Mode of Arrival: Ambulatory Source of Information: Patient Time Seen by Provider: 09/09/24 16:06 Description of Symptoms (Recalled from Triage Doc. by RN): COUGHING, BERNABE, BODY ACHES, SORE THROAT HEENT Symptoms (Recalled from RN notes): Yes Resp Symptoms (Recalled from RN notes): Yes Skin Symptoms (Recalled from RN notes): No MS Symptoms (Recalled from RN notes): No Functional Status (Recalled from RN notes): WNL Related Data Previous Rx's ?Medication ?Instructions ?Recorded amoxicillin 500 mg tablet 500 mg PO TID 10 days #30 tabs 09/09/24 [id number] 5 ml PO Q6H PRN Cough #240 mL 09/09/24 2 mg-30 mg-10 mg/5 mL oral syrup (Bromfed DM) ondansetron 4 mg disintegrating 4 mg PO Q8H PRN Nausea #12 tabs 09/09/24 tablet oseltamivir 75 mg capsule (Tamiflu) 75 mg PO BID 5 days #10 caps 09/10/24 Allergies Allergy/AdvReac Type Severity Reaction Status Date / Time No Known Allergies Allergy Verified 09/17/22 09:10 Worker's Comp Is this a Worker's Comp case?: No [facility] Disclaimer: The information contained in this section may have been updated after the patient was seen, as this information can be updated by other users. Medical History HTN (hypertension), benign Surgical History Hx of tonsillectomy Social History Smoking Status: Never smoker alcohol intake: never substance use type: denies use current occupational status: unemployed Travel in the last 8 weeks: None household members: family housing: house current occupational exposures/hazards: No caffeine: Yes Have you lived/traveled outside [place] in past 30 days?: No Contact w/someone who lives/traveled outside [place] past 30 days?: No Exposure to someone with infectious disease in past 14 days?: No Do you have a fever (greater than 100.4 F or 38 C)?: No Have you tested positive for COVID-19: No Exposed to someone with COVID-19 in past 14 days?: No Do you have a sore throat?: No Do you have a cough?: No Do you have any weakness?: No Do you have any diarrhea?: No Are you experiencing any unusual bleeding?: No Do you have any muscle aches/pain?: No Do you have any abdominal pain?: No Are you experiencing loss of taste or smell?: No ROS Obtained: Yes All systems reviewed & no additional complaints except as documented Constitutional Constitutional: Reports chills and Reports fever(s) Eyes Eyes: Denies eye discharge ENT Ears, Nose, Mouth, and Throat: Reports as per HPI Cardiovascular Cardiovascular: Denies chest pain Respiratory Respiratory: Denies chest congestion and Reports cough Gastrointestinal Gastrointestingal: Reports nausea; Denies abdominal pain, constipation, cramping, diarrhea or vomiting Musculoskeletal Musculoskeletal: Denies arthralgias Integumentary/Breasts Skin/Breast: Denies rash Neurologic Neurologic: Denies paresthesias Physical Exam General General appearance: alert and in no apparent distress Head Head exam: atraumatic, normocephalic and normal inspection Eye Eye exam: Present normal appearance, PERRL and EOMI ENT ENT exam: Present normal exam, normal oropharynx, mucous membranes moist, TM's normal bilaterally and normal external ear exam Neck Neck exam: Present normal inspection, full ROM and trachea midline; Absent meningismus or lymphadenopathy Chest Chest inspection: Present normal inspection and symmetric chest wall rise; Absent tenderness Respiratory Respiratory exam: Present normal lung sounds bilaterally; Absent respiratory distress Cardiovascular Cardiovascular exam: Present regular rate and normal rhythm; Absent JVD Abdominal Exam Abdominal exam: Present soft and normal bowel sounds; Absent distention, tenderness or guarding Extremities Exam Extremities exam: Present normal inspection, full ROM and normal capillary refill; Absent calf tenderness Back Exam Back exam: Present normal inspection; Absent tenderness Neurological Exam Neurological exam: Present alert and oriented X3 Psychiatric Psychiatric exam: Present normal affect and normal mood Skin Skin exam: Present warm, dry, intact and normal color Lymphatic Lymphatic Findings: no adenopathy Medical Decision Making Medical Records Medical records reviewed: No I reviewed the patient's medical records. Screening: Per USPSTF and CDC recommendations, given the prevalence of disease in our region, it is our hospital?s policy to screen for HIV and viral Hepatitis for all patients aged 18 and over and those with ongoing risk factors. Noe Inquiry Pt receiving controlled substance: No Vital Signs: 09/09/24 15:49 Temperature 99.5 F Temperature Source Oral Pulse Rate [Left Brachial] 95 H Respiratory Rate 18 Blood Pressure [Left Arm] 121/77 Blood Pressure Mean [Left Arm] 91 02 Sat by Pulse Oximetry 96 Lab Data Lab results reviewed: Yes I reviewed the patient's lab results. Lab Results 09/09/24 15:52: Influenza Type A Ag Negative, Influenza Type B Ag Negative, Strep Scn Rapid Clinic Negative Orders (Tests/Meds): ORDERS Category Date Time Status Strep Screen Confirmation Stat Micro 09/09/24 15:52 Received
[2024-09-09 16:55] VITALS: BP 121/77; PULSE 95; RESP 18; TEMP 37.5
[2024-09-09 17:04] LABS: Coronavirus 19, PCR Not Detected (NotDetected); Influenza B, PCR Not Detected (NotDetected)
[2024-09-09 19:31] LABS: Influenza A, PCR Detected (NotDetected)
== END 2024-09-09 17:02 | disposition home or self-care (01) ==
PROVIDERS: Emergency Provider Nurse Practitioner Family; PCP Nurse Practitioner Family
DX: J20.9 Acute bronchitis, unspecified (principal); J09.X2 Influenza due to identified novel influenza A virus with other respiratory manifestations; R53.83 Other fatigue; R51.9 Headache, unspecified; R50.9 Fever, unspecified; R05.9 Cough, unspecified; R11.0 Nausea
CPT/HCPCS: 87636; 87804; 87880; 99212; G0381